=== PATIENT | male | born 1945 | race Caucasian/White ===

== ENCOUNTER 2025-03-20 09:45 | Inpatient (IN) ==
--- NOTE | 2025-03-20 09:48 | Emergency Department Note ---
HPI - Altered Mental Status General Chief Complaint: Altered Mental Status Stated Complaint: Rt Side Weakness Time Seen by Provider: 03/20/25 09:47 Source: caregiver and medical record Mode of arrival: Wheelchair Limitations: altered mental status History of Present Illness MD complaint: altered mental status Onset (ago): hour(s) (14) Time: 20:00 Timing confirmed by: caregiver Severity: moderate Consistency of symptoms: constant Context: seizure disorder Associated symptoms: malaise, weakness and other (Right-sided weakness, gibberish language, not acting himself) Related Data Home Medications Medication Instructions Recorded Confirmed hydroxyzine HCl 25 mg tablet 25 mg PO Q8H PRN itching 06/17/24 06/17/24 loratadine 10 mg tablet 10 mg PO DAILY 06/17/2406/03 multivitamin (Daily Multi-Vitamin 1 tab PO DAILY 06/1706/17/24 tablet) Previous Rx's Medication Instructions Recorded amlodipine 5 mg tablet 5 mg PO DAILY HTN #30 tabs 0 06/20/24 aspirin 81 mg tablet,delayed 81 mg PO DAILY HTN #30 ta bs 06/20/24 release atorvastatin 40 mg tablet 40 mg PO BEDTIME CVA 90 days #90 06/20/24 tabs Allergies Allergy/AdvReac Type Severity Reaction Status Date / Time No Known Drug Allergies Allergy Verified 03/20/25 10:01 Review of Systems Status of ROS 10 or more systems reviewed and unremark able except as noted in history and below (Reviewed with caregiver) Constitutional Reports: malaise Musculoskeletal Reports: muscle weakness Neurological Reports: weakness in extremities, behavioral changes and difficulty communicating thoughts; Denies: slurred speech (Patient babbling) Psychiatric Reports: anxiety [facility] Medical History (Updated 03/20/25 @ 10:05 by Daja Kingston RN) Unspecified glaucoma Metabolic encephalopathy Seizure as late effect of cerebrovascular accident (CVA) Thyroid disease Diabetes Hypertension Seizure disorder CVA (cerebral vascular accident) Social History Smoking status: unknown if ever smoked Problems where you live: no known problems Highest level of school completed/degree received: high school Little interest or pleasure in doing things: not at all Feeling down, depressed, or hopeless: not at all Feel stressed/tense/nervous/anxious/difficulty sleeping: not at all Life stressor details: n/a Exam Constitutional: normal general appearance, distress noted (moderate), average body habitus, limitations noted (altered mental status) and alert Vital Signs - 24 hr 03/20/25 09:45 03/20/25 10:00 03/20/25 10:15 Temperature 98.5 F Pulse Rate 78 67 73 Respiratory Rate 18 18 18 Blood Pressure 181/84 173/81 165/78 Pulse Oximetry 98 98 94 L Oxygen Delivery Nc thod Room Air Room Air Room Air 03/20/25 10:45 03/20/25 11:00 03/20/25 11:15 Temperature Pulse Rate 66 65 68 Respiratory Rate 18 18 18 Blood Pressure 178/93 170/88 172/88 Pulse Oximetry 96 96 94 L Oxygen Delivery Nc thod Room Air Room Air Room Air 03/20/25 12:30 03/20/25 13:00 03/20/25 14:16 Temperature Pulse Rate 68 63 61 Respiratory Rate 18 18 18 Blood Pressure 153/65 162/77 168/87 Pulse Oximetry 96 97 96 Oxygen Delivery Nc thod Room Air Room Air Room Air HENMT: normocephalic, head/scalp atraumatic, hearing grossly normal bilaterally, external ears normal, external nose normal, oropharynx normal, dentition normal and gingiva normal Eyes: PERRL, EOMs intact bilaterally, conjunctivae normal, no scleral icterus, no papilledema, normal visual rachel by confrontation, alignment normal, periorbital findings normal and no nystagmus Neck/C-Spine: visual inspection normal, trachea midline, cervical spine nontender, cervical full ROM noted and supple Lymph: no lymphadenopathy noted and no lymphedema noted Chest: inspection of chest normal Respiratory: breath sounds equal bilaterally, normal respiratory effort, clear to auscultation bilaterally, no wheezes, no rales, no retractions and no use of accessory muscles Cardiovascular: normal heart rate noted, regular rhythm noted, no gallop, no murmur, no JVD, peripheral pulses 2+ throughout and no additional abnormal heart sounds Gastrointestinal: abdomen normal to inspection, abdomen soft to palpation, nontender to palpation, nondistended, normoactive bowel sounds, no masses, no pulsatile mass and no ascites Genitourinary: no CVA tenderness and bladder normal to palpation Back/Pelvis: spine normal to inspection Extremities: normal to inspection, normal to palpation, no tenderness, full ROM, no joint enlargement and no deformity Neurology: no movement abnormality noted, no focal motor deficit noted, no sensory deficits noted, gait abnormality noted (unable to access), speech abnor mality noted (garbled), no pronator drift noted, no fasciculations noted and GCS calculation - Eye opening: Spontaneous Verbal response: Words Motor response: Obey commands Jamieson Coma Scale total score: 13 Psychiatry: Mental Status Exam documented within this Exam's Psych section mental status abnormal (somnolent), cooperative, affect abnormality noted (flat) and psychomotor activity normal Feel stressed/tense/nervous/anxious/difficulty sleeping: not at all Life stressor details: n/a Skin: skin color normal, no rash, no lesions, no ecchymosis noted, no wounds, no lacerations, skin turgor normal, no jaundice, no petechiae, no mottling, nails normal and no alopecia Course Course Hospital Course: 79-year-old male presents to ER from [place] for increased agitation and aggression, altered mental status, possible CVA and has been evaluated by physical exam, CBC, CMP, BMP, troponin serial, urinalysis, lactic acid, EKG, plain film chest x-ray, and CT of the brain without contrast with results as noted in charting. Patient has been calm during her stay in the ER; however, he does have garbled speech and is unable to express his thoughts and is visibly aggravated because he is struggling to express what he wants to say. Patient's lab work shows hyponatremia, mild dehydration, normal troponins, EKG is normal, CT of the brain shows no acute bleeds or intracranial process, CBC is unremarkable. Patient's lactic is elevated at 1.7 with no root cause found for this elevation currently. Patient does have history of CVA and has passed and will be admitted to the [facility] floor for an MRI in the morning as well as carotid ultrasounds. Patient will have neurochecks throughout the night. Consider placement in BHU; however, family refused placement to the BHU at this time. Vital Signs Vital signs: Vital Signs Temperature 98.5 F 03/20/25 09:45 Pulse Rate 78 03/20/25 09:45 Respiratory Rate 18 03/20/25 09:45 Blood Pressure 181/84 03/20/25 09:45 Pulse Oximetry 98 05/18/25 09:45 Oxygen Delivery Method Room Air 03/20/25 09:45 Temperature 98.5 F 03/20/25 09:45 Pulse Rate 61 03/20/25 14:16 Respiratory Rate 18 03/20/25 14:16 Blood Pressure 168/87 03/20/25 14:16 Pulse Oximetry 96 03/20/25 14:16 Oxygen Delivery Method Room Air 03/20/25 14:16 MDM - Altered Mental Status MDM Narrative Medical decision making narrative: Medical decision making for this patient included CBC, CMP, troponin, urinalysis, magnesium, BNP, serial troponin, CT of the brain, plain film chest x-ray, and physical exam. Differential Diagnosis Differential diagnosis: Likely altered mental status, delirium, dementia, hypoglycemia, hyponatremia, subarachnoid hemorrhage and sepsis Medical Records Attestation: I reviewed the patient's medical records. Lab Data Attestation: I reviewed the patient's lab results. Labs: Lab Results 03/20/25 03/20/25 03/20/25 Range/Units 09:50 10:00 10:00 WBC 8.6 (3.7-9.6) K/uL RBC 4.9 (4.40-5.80) M/uL Hgb 14.7 (14.0-17.4) gm/dL Hct 43.9 (41.3-50.1) % MCV 89.6 (81.9-96.5) fl MCH 29.9 (27.6-33.7) pg MCHC 33.4 (33.0-35.7) g/dl RDW 14.7 (11.0-14.8) % Plt Count 186 (142-355) K/uL MPV 8.2 (6.0-10.4) fl Gran % 63.0 (49.1-73.1) % Lymph % (Auto) 21.6 (17.6-39.05) % [place] % (Auto) 12.1 H (4.5-10.7) % Eos % (Auto) 2.8 (0.0-4.0) % Baso % (Auto) 0.5 (0.0-1.3) Lymph # (Auto) 1.9 (0.8-2.9) [place] # (Auto) 1.0 H (0.2-0.8) Eos # (Auto) 0.2 (0.0-0.3) Baso # (Auto) 0.0 (0.0-0.1) Absolute Gran (auto) 5.4 (2.0-6.2) Sodium 135 L (136-145) mmol/L Potassium 4.2 (3.6-5.2) mmol/L Chloride 102.0 (98-107) mmol/L Carbon Dioxide 29 (21-32) mmol/L Anion Gap 4.0 (4-14) mEq/L BUN 17 (7-18) mg/dL Creatinine 1.4 H (0.6-1.3) mg/dL Estimated GFR 50.5 (>59.9) Glucose 155 H (70-110) mg/dL Lactic Acid 1.7 H (0.27-1.43) mmol/L Calcium 8.8 (8.5-10.1) mg/dL Total Bilirubin 0.76 (0.0-1.0) mg/dL AST 15 (15-37) U/L ALT 28 L (30-65) U/L Alkaline Phosphatase 67 (50-136) U/L Troponin I High Sens 9.60 10.10 (4.0-60.4) ng/L B-Natriuretic Peptide 56.8 (0-100) pg/mL Total Protein 7.4 (6.4-8.2) g/dL Albumin 3.4 (3.4-5.0) g/dL Urine Color Yellow (STRAW/YELL.) Urine Appearance Hazy (CLEAR) Ur Specific [place] 1.015 (1.001-1.035) Urine Protein Negative (NEGATIVE) Urine Glucose (UA) Normal (NORMAL) Urine Ketones Negative (NEGATIVE) Urine Occult Blood Negative (NEG - TRACE) Urine Nitrite Negative (NEGATIVE) Urine Bilirubin Negative (NEGATIVE) Urine Urobilinogen Normal (NORMAL) Ur Leukocyte Esterase Negative (NEGATIVE) Fluid pH 6.5 (5 - 9) COVID-19 (SYLVIA) (Not Detectd) 03/20/25 Range/Units 15:45 WBC (3.7-9.6) K/uL RBC (4.40-5.80) M/uL Hgb (14.0-17.4) gm/dL Hct (41.3-50.1) % MCV (81.9-96.5) fl MCH (27.6-33.7) pg MCHC (33.0-35.7) g/dl RDW (11.0-14.8) % Plt Count (142-355) K/uL MPV (6.0-10.4) fl Gran % (49.1-73.1) % Lymph % (Auto) (17.6-39.05) % [place] % (Auto) (4.5-10.7) % Eos % (Auto) (0.0-4.0) % Baso % (Auto) (0.0-1.3) Lymph # (Auto) (0.8-2.9) [place] # (Auto) (0.2-0.8) Eos # (Auto) (0.0-0.3) Baso # (Auto) (0.0-0.1) Absolute Gran (auto) (2.0-6.2) Sodium (136-145) mmol/L Potassium (3.6-5.2) mmol/L Chloride (98-107) mmol/L Carbon Dioxide (21-32) mmol/L Anion Gap (4-14) mEq/L BUN (7-18) mg/dL Creatinine (0.6-1.3) mg/dL Estimated GFR (>59.9) Glucose (70-110) mg/dL Lactic Acid (0.27-1.43) mmol/L Calcium (8.5-10.1) mg/dL Total Bilirubin (0.0-1.0) mg/dL AST (15-37) U/L ALT (30-65) U/L Alkaline Phosphatase (50-136) U/L Troponin I High Sens (4.0-60.4) ng/L B-Natriuretic Peptide (0-100) pg/mL Total Protein (6.4-8.2) g/dL Albumin (3.4-5.0) g/dL Urine Color (STRAW/YELL.) Urine Appearance (CLEAR) Ur Specific [place] (1.001-1.035) Urine Protein (NEGATIVE) Urine Glucose (UA) (NORMAL) Urine Ketones (NEGATIVE) Urine Occult Blood (NEG - TRACE) Urine Nitrite (NEGATIVE) Urine Bilirubin (NEGATIVE) Urine Urobilinogen (NORMAL) Ur Leukocyte Esterase (NEGATIVE) Fluid pH (5 - 9) COVID-19 (SYLVIA) Not detected (Not Detectd) Imaging Data Imaging ordered: Chest x-ray and CT scan - head Attestation: I have reviewed the pertinent imaging results. Radiologist's impression: EXAM: CT HEAD/BRAIN WO CON HISTORY: Altered mental status altered mental status; COMPARISON: Head CT 11/21/2024 TECHNIQUE: Multiple CT axial images of the brain were obtained without IV contrast. Coronal and sagittal images were reconstructed. Dose reduction techniques included Automated Exposure Control (AEC) and adjustment of mA and kV. FINDINGS: Age-related findings include central and cortical atrophy with areas of low density in the periventricular white matter compatible with micro-ischemic changes. This appearance is stable. 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 Lacunar infarct in the right basal ganglia is unchanged. Otherwise bravo and white matter have normal differentiation. There is no mass, shift, or hemorrhage. Cerebellar tonsils are at an appropriate level. No fluid in the sinuses or mucosal thickening to suggest sinusitis. There is no mastoid effusion. IMPRESSION: 1. No acute finding THIS IS AN ELECTRONICALLY VERIFIED FINAL REPORT 03/20/2025 11:07 AM - Electronically signed by Himanshu Harrell MD ECG Data Attestation: I have reviewed the pertinent ECG results. Prior ECG tracings: available for review Interpretation: Sinus rhythm rate 71 Normal P axis RR 844 DC 188 QT 385 P axis 40 QRS 38 T 99 No STEMI Discharge Plan Discharge Patient Disposition: Admitted As Observation Condition: Stable Clinical Impression: Acute alteration in mental status, Hyponatremia, Dehydration, Hyperglycemia Time of Disposition: 11:15
[2025-03-20 10:22] LABS: Basophils%(Percent) Auto 0.5 (0.0-1.3); Eosinophils#(Absolute)Auto 0.2 (0.0-0.3); Eosinophils%(Percent) Auto 2.8 % (0.0-4.0); Granulocytes#(Absolute)- Auto 5.4 (2.0-6.2); Hematocrit 43.9 % (41.3-50.1); Mean Corpuscular Volume 89.6 fl (81.9-96.5); Monocytes %(Percent)- Auto 12.1 % (4.5-10.7); Platelet Count 186 K/uL (142-355); White Blood Count 8.6 K/uL (3.7-9.6)
[2025-03-20 10:24] LABS: Potassium 4.2 mmol/L (3.6-5.2)
[2025-03-20 10:25] LABS: Specific Gravity Urine 1.015 (1.001-1.035); Urine Appearance HAZY (CLEAR); Urine Color YELLOW (STRAW/YELL.)
[2025-03-20 10:26] LABS: PH BODY FLUID EXCP BLOOD 6.5 (5 - 9); Urine Blood NEGATIVE (NEG - TRACE); Urine Urobilinogen Normal (NORMAL)
[2025-03-20] MEDS: 0.9 % SODIUM CHLORIDE 1000 ML 1,000 ML IV STA (11:29)
[2025-03-20] MEDS ORDERED: DOCUSATE SODIUM 100 MG CAPSULE PO PRN (19:16)
[2025-03-20] MEDS ORDERED: ONDANSETRON HCL/PF 4 MG/2 ML VIAL INJ PRN (19:16)
[2025-03-20] MEDS ORDERED: ACETAMINOPHEN 1000 MG/100 ML 1,000 MG/100 ML IV.SOLN IV PRN (19:21)
[2025-03-20] MEDS ORDERED: PROMETHAZINE HCL 25 MG in 0.9 % SODIUM CHLORIDE 50 ML IV PRN (19:21)
[2025-03-21] MEDS: 0.9 % SODIUM CHLORIDE 1000 ML 1,000 ML IV SCH (01:24)
[2025-03-21 05:39] LABS: Basophils%(Percent) Auto 0.4 (0.0-1.3); Eosinophils#(Absolute)Auto 0.4 (0.0-0.3); Eosinophils%(Percent) Auto 4.3 % (0.0-4.0); Granulocytes % - Auto 57.7 % (49.1-73.1); Granulocytes#(Absolute)- Auto 4.7 (2.0-6.2); Hematocrit 41.8 % (41.3-50.1); Monocytes %(Percent)- Auto 11.9 % (4.5-10.7); Platelet Count 172 K/uL (142-355); White Blood Count 8.2 K/uL (3.7-9.6)
[2025-03-21] MEDS: PANTOPRAZOLE SODIUM 40 MG VIAL IVP SCH (09:24)
--- NOTE | 2025-03-21 10:06 | History & Physical Report ---
H&P: HPI History of Present Illness Chief complaint: AMS,HYPONATREMIA,DEHYDRATION,HYPERGLYCEMIA Narrative: Mr. Weinberg was admitted on 03/20/25 from the ED, a patient at [facility] for stroke like symptoms. He was confused and continues to be confused. Garbled speech which still persists this morning and he is having difficulty expressing himself, but does attempt to obey commands although what seems to be physical limitation. CBC, CMP, UA were unremarkable. CT head was negative, while CXR did show pulmonary edema. He has had multiple CVAs in the past. Review of Systems Status of ROS 10 or more systems reviewed and unremark able except as noted in history and below (Reviewed with caregiver) Constitutional Reports: malaise Musculoskeletal Reports: muscle weakness Neurological Reports: weakness in extremities, confusion, behavioral changes and difficulty communicating thoughts; Denies: slurred speech (Patient babbling) Psychiatric Reports: anxiety [facility] Medical History (Updated 03/21/25 @ 10:21 by Zeke Gayle NP) Pulmonary edema Unspecified glaucoma Metabolic encephalopathy Seizure as late effect of cerebrovascular accident (CVA) Thyroid disease Diabetes Hypertension Seizure disorder CVA (cerebral vascular accident) Social History Smoking status: unknown if ever smoked Problems where you live: no known problems Highest level of school completed/degree received: decline to answer Little interest or pleasure in doing things: not at all Feeling down, depressed, or hopeless: not at all Feel stressed/tense/nervous/anxious/difficulty sleeping: not at all Life stressor details: n/a Meds Home Medications and Allergies Home Medications Medication Instructions Recorded Confirmed Type aspirin 81 mg tablet,delayed 81 mg PO DAILY HTN #30 ta bs 06/20/24 03/21/25 Rx release amlodipine 5 mg tablet 10 mg PO DAILY HTN 03/21/25 03/21/25 History atorvastatin 20 mg tablet 20 mg PO .QHS 03/21/2503/21 History clopidogrel 75 mg tablet 75 mg PO DAILY 03/21/2503/03 History dextrose 40 % oral gel (Glucose 10 g PO Q24H PRN hypog lycemia 03/21/25 03/21/25 History Gel) diclofenac sodium 1 % topical gel 2 g topical .every s hift 03/21/25 03/21/25 History glucagon HCl 1 mg solution for 1 mg IM Q24H PRN hypogl ycemia 03/21/25 03/21/25 History injection (Glucagon (HCl) Emergency Kit) levothyroxine 88 mcg tablet 88 mcg PO DAILY 03/21/25 0 03/21/25 History peg 400-propylene glycol 0.4 %-0.3 2 drp ophthalmic (e ye) DAILY PRN 03/21/25 03/21/25 History % eye drops (Systane (propylene dry eye(s) glycol)) vit C 250 mg-vit E 90 mg-zinc 40 1 tab PO BID 03/21/25 03/21/25 History mg-copper 1 [id number] capsule (PreserVision AREDS-2) Allergies Allergy/AdvReac Type Severity Reaction Status Date / Time No Known Drug Allergies Allergy Verified 03/20/25 10:01 Exam Constitutional: normal general appearance, distress noted (moderate), average body habitus, limitations noted (altered mental status) and alert Vital Signs - 24 hr 03/20/25 10:15 03/20/25 10:45 03/20/25 11:00 Temperature Pulse Rate 73 66 65 Pulse Rate [Brachi al] Respiratory Rate 18 18 18 Blood Pressure 165/78 178/93 170/88 Blood Pressure [Ri ght Arm] Pulse Oximetry 94 L 96 [facility] Room [facility] 03/20/25 11:15 03/20/25 12:30 03/20/25 13:00 Temperature Pulse Rate 68 68 63 Pulse Rate [Brachi al] Respiratory Rate 18 18 18 Blood Pressure 172/88 153/65 162/77 Blood Pressure [Ri ght Arm] Pulse Oximetry 94 L 96 97 [facility] Room Air Room Air 03/20/25 14:16 03/20/25 19:00 03/20/25 20:30 Temperature Pulse Rate 61 65 Pulse Rate [Brachi al] Respiratory Rate 18 18 Blood Pressure 168/87 161/79 Blood Pressure [Ri ght Arm] Pulse Oximetry 96 97 [facility] Room Air Room Air 03/20/25 22:00 03/20/25 22:50 03/20/25 23:35 Temperature 98.5 F 98.5 F 98.5 F Pulse Rate 63 63 Pulse Rate [Brachi al] 64 Respiratory Rate 18 18 17 Blood Pressure 159/71 159/71 Blood Pressure [Ri ght Arm] 153/76 Pulse Oximetry 97 97 99 Oxygen Delivery Me thod Room Air Room Air 03/21/25 03:59 03/21/25 07:44 Temperature 98.5 F 98.0 F Pulse Rate Pulse Rate [Brachi al] 62 64 Respiratory Rate 18 19 Blood Pressure Blood Pressure [Ri ght Arm] 149/78 160/75 Pulse Oximetry 97 96 Oxygen Delivery Me thod Room Air Room Air HENMT: normocephalic, head/scalp atraumatic, hearing grossly normal bilaterally, external ears normal, external nose normal, oropharynx normal, dentition normal and gingiva normal Eyes: PERRL, EOMs intact bilaterally, conjunctivae normal, no scleral icterus, no papilledema, normal visual rachel by confrontation, alignment normal, periorbital findings normal and no nystagmus Neck/C-Spine: visual inspection normal, trachea midline, cervical spine nontender, cervical full ROM noted and supple Lymph: no lymphadenopathy noted and no lymphedema noted Chest: inspection of chest normal Respiratory: breath sounds equal bilaterally, normal respiratory effort, clear to auscultation bilaterally, no wheezes, no rales, no retractions and no use of accessory muscles Cardiovascular: normal heart rate noted, regular rhythm noted, no gallop, no murmur, no JVD, peripheral pulses 2+ throughout and no additional abnormal heart sounds Gastrointestinal: abdomen normal to inspection, abdomen soft to palpation, nontender to palpation, nondistended, normoactive bowel sounds, no masses, no pulsatile mass and no ascites Genitourinary: no CVA tenderness and bladder normal to palpation Back/Pelvis: spine normal to inspection Extremities: normal to inspection, normal to palpation, no tenderness, full ROM, no joint enlargement and no deformity Neurology: no movement abnormality noted (generalized weakeness), no focal motor deficit noted, no sensory deficits noted, gait abnormality noted (unable to access), speech abnormality noted (garbled), coordination normal (difficulty with nose to finger, heel to diop), no pronator drift noted, no fasciculations noted and GCS calculation - Eye opening: Spontaneous Verbal response: Words Motor response: Obey commands Smiley Coma Scale total score: 13 Psychiatry: Mental Status Exam documented within this Exam's Psych section mental status abnormal (somnolent), cooperative, affect abnormality noted (flat) and psychomotor activity normal Feel stressed/tense/nervous/anxious/difficulty sleeping: not at all Life stressor details: n/a Skin: skin color normal, no rash, no lesions, no ecchymosis noted, no wounds, no lacerations, skin turgor normal, no jaundice, no petechiae, no mottling, nails normal and no alopecia Assessment and Plan Assessment and Plan (1) Acute CVA (cerebrovascular accident): Assessment and Plan: MRI/MRI Carotid US Plavix 75mg po daily ASA 81mg po daily Lipitor 40mg po daily Code(s): I63.9 - Cerebral infarction, unspecified (2) Weakness of right side of body: Assessment and Plan: MRI/MRI Carotid US Plavix 75mg po daily ASA 81mg po daily Lipitor 40mg po daily Code(s): R53.1 - Weakness (3) Pulmonary edema: Assessment and Plan: Lasix 40mg IV daily Code(s): J81.1 - Chronic pulmonary edema (4) Hypothyroidism: Assessment and Plan: Synthroid 88mcg po daily Qualifiers: Hypothyroidism type: other Qualified Code(s): E03.8 - Other specified hypothyroidism Code(s): E03.9 - Hypothyroidism, unspecified (5) Diabetes: Assessment and Plan: Accucheck ACHS w/ SSI Qualifiers: Diabetes mellitus complication detail: with other circulatory complications Diabetes mellitus complication status: with circulatory complication Diabetes mellitus roasterman insulin use: without roasterman use Diabetes mellitus type: type 2 Qualified Code(s): E11.59 - Type 2 diabetes phillip itus with other circulatory complications Code(s): E11.9 - Type 2 diabetes mellitus without complications (6) Hypertension: Assessment and Plan: Norvac 10mgpo daily Qualifiers: Hypertension type: primary hypertension Qualified Code(s): I10 - Essential (primary) hypertension Code(s): I10 - Essential (primary) hypertension Plan Admit VS q4hrs PT/OT/ST eval MRI/MRA Results Labs Labs: CBC 03/20/25 03/21/25 Range/Units 10:00 05:30 WBC 8.6 8.2 (3.7-9.6) K/uL RBC 4.9 4.7 (4.40-5.80) M/uL Hgb 14.7 14.2 (14.0-17.4) gm/dL Hct 43.9 41.8 (41.3-50.1) % Plt Count 186 172 (142-355) K/uL Gran % 63.0 57.7 (49.1-73.1) % Lymph % (Auto) 21.6 25.7 (17.6-39.05) % [place] % (Auto) 12.1 H 11.9 H (4.5-10.7) % Eos % (Auto) 2.8 4.3 H (0.0-4.0) % Baso % (Auto) 0.5 0.4 (0.0-1.3) Lymph # (Auto) 1.9 2.1 (0.8-2.9) [place] # (Auto) 1.0 H 1.0 H (0.2-0.8) Eos # (Auto) 0.2 0.4 H (0.0-0.3) Baso # (Auto) 0.0 0.0 (0.0-0.1) Absolute Gran (auto) 5.4 4.7 (2.0-6.2) CMP 03/20/25 03/21/25 10:00 05:30 Sodium 135 L 142 Potassium 4.2 4.0 Chloride 102.0 102.0 Carbon Dioxide 29 27 BUN 17 13 Creatinine 1.4 H 1.2 Glucose 155 H 125 H Calcium 8.8 7.7 L Liver Function 03/20/25 Range/Units 10:00 Total Bilirubin 0.76 (0.0-1.0) mg/dL AST 15 (15-37) U/L ALT 28 L (30-65) U/L Alkaline Phosphatase 67 (50-136) U/L Albumin 3.4 (3.4-5.0) g/dL Urine 03/20/25 09:50 Urine Color Yellow Urine Appearance Hazy Ur Specific [place] 1.015 Urine Protein Negative Urine Glucose (UA) Normal Imaging Imaging ordered: Chest x-ray ([facility] [address] [place] [address] XRay Report Signed Patient: Joseph Weinberg MR#: [id number] : 1945 Acct:[id number] Age/Sex: 79 / M ADM Date: 03/20/25 Loc: ED Attending Dr: Ordering Physician: Bao Neville NP Date of Service: 03/20/25 Procedure(s): XR ethel), CT scan - head ( [place] [address] CT Scan Report Signed Patient: Joseph Weinberg MR#: [id number] : 1945 Acct:[id number] Age/Sex: 79 / M ADM Date: 03/20/25 Loc: ED Attending Dr: Ordering Physician: Bao Neville NP Date of Service: 03/20/25 Procedure(s): CT) and MRI - head (Patient: Joseph Weinberg MR#: [id number] : 1945 Acct:[id number] Age/Sex: 79 / M ADM Date: 03/20/25 Loc: [place] 1106-[address]: Zeke Gayle NP Ordering Physician: Bao Neville NP Date of Service: 03/21/25 Procedure(s): MR head/brain wo/w con Accession Number(s): [id number] cc: ~ EXA)
[2025-03-21] MEDS: AMLODIPINE BESYLATE 5 MG TABLET PO SCH (13:17)
[2025-03-21] MEDS: FUROSEMIDE 20 MG/2 ML VIAL IV SCH (13:17)
[2025-03-21] MEDS: ATORVASTATIN CALCIUM 10 MG TABLET PO SCH (13:17)
[2025-03-21] MEDS: CLOPIDOGREL BISULFATE 75 MG TABLET PO SCH (13:18)
[2025-03-21] MEDS: ASPIRIN 81 MG TABLET.DR PO SCH (13:18)
[2025-03-21] MEDS ORDERED: LORazepam 2 MG/ML VIAL IVP PRN (14:18)
[2025-03-21] MEDS: LEVOTHYROXINE SODIUM 88 MCG TABLET PO SCH (15:06)
[2025-03-21] MEDS: LORazepam 1 MG TABLET PO ONE (15:07)
[2025-03-21] MEDS: OLANZapine 10 MG VIAL IM ONE (18:25)
[2025-03-21] MEDS: MORPHINE SULFATE 2 MG/ML CARTRIDGE IV PRN (20:49)
[2025-03-22 07:09] LABS: Basophils%(Percent) Auto 0.4 (0.0-1.3); Eosinophils#(Absolute)Auto 0.1 (0.0-0.3); Eosinophils%(Percent) Auto 0.9 % (0.0-4.0); Granulocytes % - Auto 79.3 % (49.1-73.1); Granulocytes#(Absolute)- Auto 8.7 (2.0-6.2); Hematocrit 48.9 % (41.3-50.1); Mean Corpuscular Volume 88.9 fl (81.9-96.5); Monocytes #(Absolute)- Auto 0.9 (0.2-0.8); Monocytes %(Percent)- Auto 8.4 % (4.5-10.7); Platelet Count 194 K/uL (142-355)
--- NOTE | 2025-03-22 10:05 | Discharge Summary ---
DS: Providers Provider Date of admission: 03/20/25 19:17 Primary care physician: Sheila Quinones DO Consults: 03/21/25 10:25 Consult to Occupational Therapy Routine Comment: Consulting Provider: Reason for consultation: cva Physician Instructions: eval and tx Consult to Physical Therapy Routine Comment: Consulting Provider: Reason for consultation: cva Physician Instructions: eval and tx Consult to Speech Therapy Routine Comment: Consulting Provider: Reason for consultation: cva Physician Instructions: eval and tx Anticipated date of discharge: 03/24/25 DS: Diagnosis Discharge Diagnosis (1) Acute CVA (cerebrovascular accident): (2) Weakness of right side of body: (3) Pulmonary edema: (4) Hypothyroidism: Qualifiers: Hypothyroidism type: other Qualified Code(s): E03.8 - Other specified hypothyroidism (5) Diabetes: Qualifiers: Diabetes mellitus complication detail: with other circulatory complications Diabetes mellitus complication status: with circulatory complication Diabetes mellitus halfway insulin use: without halfway use Diabetes mellitus type: type 2 Qualified Code(s): E11.59 - Type 2 diabetes mellitus with other circulatory complications (6) Hypertension: Qualifiers: Hypertension type: primary hypertension Qualified Code(s): I10 - Esse ntial (primary) hypertension DS: Summary Hospital Course Hospital Course: Mr. Weinberg was admitted on 03/20/25 from the ED, a patient at [place] for stroke like symptoms. He was confused and continues to be confused. Garbled speech which still persists this morning and he is having difficulty expressing himself, but does attempt to obey commands although what seems to be physical limitation. CBC, CMP, UA were unremarkable. CT head was negative, while CXR did show pulmonary edema. He has had multiple CVAs in the past. MRI was conducted on 03/21/25 with CVA present; results were discussed with REBEKAH Mcarthur and decision was made not to transfer as patient was stable and intervention window had passed. During the night patient became combative and was given zyprexa which he later did have a hypotensive episode. BP and sedatory medications were later stopped. On 03/22/25 carotid doppler results were obtained showing R sided occultion and 70% stenosis. Discussed with family findings; continuing treatment here at [facility] or transfer for vascular evaluation with possible intervention and they are agreeable. Patient was accepted at [facility] by Dr. Wayne 03/21/25. Patient was started on aspirin and plavix. He continued to have R sided weakness throughout his stay, BP did stabilize. During the night of 03/23-03/24 he got combative, was given haldol, and later became hypotensive. Was seen by ED provider CXR and CT head were conducted. CXR showed LLL PNA and patient started on Zosyn. CT head showed L parietal subacute infarct. Contacted [facility] patient accepted by Dr. Monsivais on 03/24/25 1030am. Patient transferred via EMS on 03/24/25 Status at Discharge Cognitive/behavioral status at discharge: aphasia, Functional status at discharge: uses cane/walker (max assist) Overall status at discharge: patient is not back to baseline Time Spent with Patient Time attestation: Total time spent providing and/or coordinating discharge services: 60 Specific discharge activities: Transfer to Dr. Wayne [facility] [place] Exam Exam: Exam limited by aphasia Constitutional: normal general appearance, distress noted (moderate), average body habitus, limitations noted (altered mental status) and alert Vital Signs - 24 hr 03/21/25 12:33 03/21/25 13:17 03/21/25 13:17 Temperature 98.2 F Pulse Rate [Brachi al] 70 Respiratory Rate 19 Blood Pressure 149/66 149/66 Blood Pressure [Ri ght Arm] 149/66 Pulse Oximetry 96 Oxygen Delivery Me thod Room Air 03/21/25 14:03 03/21/25 16:11 03/21/25 19:15 Temperature 97.7 F 97.9 F Pulse Rate [Brachi al] 66 73 Respiratory Rate 19 17 Blood Pressure 143/73 Blood Pressure [Ri ght Arm] 138/57 133/61 Pulse Oximetry 95 96 Oxygen Delivery Me thod Room Air Room Air 03/21/25 23:26 03/22/25 03:33 03/22/25 04:29 Temperature 97.6 F 97.8 F Pulse Rate [Brachi al] 62 53 L Respiratory Rate 16 17 Blood Pressure Blood Pressure [Ri ght Arm] 95/59 71/37 95/49 Pulse Oximetry 96 96 Oxygen Delivery Me thod Room Air Room Air 03/22/25 07:57 Temperature 97.6 F Pulse Rate [Brachi al] 65 Respiratory Rate 19 Blood Pressure Blood Pressure [Ri ght Arm] 123/68 Pulse Oximetry 96 Oxygen Delivery Me thod Room Air HENMT: normocephalic, head/scalp atraumatic, hearing grossly normal bilaterally, external ears normal, external nose normal, oropharynx normal, dentition normal and gingiva normal Eyes: PERRL, EOMs intact bilaterally, conjunctivae normal, no scleral icterus, no papilledema, normal visual rachel by confrontation (limited R vision), alignment normal, periorbital findings normal and no nystagmus (limited R vision) Neck/C-Spine: visual inspection normal, trachea midline, cervical spine nontender, cervical full ROM noted and supple Lymph: no lymphadenopathy noted and no lymphedema noted Chest: inspection of chest normal Respiratory: breath sounds equal bilaterally, normal respiratory effort, clear to auscultation bilaterally, no wheezes, no rales, no retractions and no use of accessory muscles Cardiovascular: normal heart rate noted, regular rhythm noted, no gallop, no murmur, no JVD, peripheral pulses 2+ throughout and no additional abnormal heart sounds Gastrointestinal: abdomen normal to inspection, abdomen soft to palpation, nontender to palpation, nondistended, normoactive bowel sounds, no masses, no pulsatile mass and no ascites Genitourinary: no CVA tenderness and bladder normal to palpation Back/Pelvis: spine normal to inspection Extremities: normal to inspection, normal to palpation, no tenderness, full ROM, no joint enlargement and no deformity Neurology: no movement abnormality noted (R impaired secondary to aphasia), no focal motor deficit noted, no sensory deficits noted, gait abnormality noted (unable to access), speech abnormality noted (garbled), no pronator drift noted, no fasciculations noted and GCS calculation - Eye opening: Spontaneous Verbal response: Words Motor response: Obey commands Irvin Coma Scale total score: 13 Patient having some difficulty following commands; physical vs mental impairments. Psychiatry: Mental Status Exam documented within this Exam's Psych section mental status abnormal (aphasia) (somnolent), affect abnormality noted (flat) a nd psychomotor activity normal difficulty obeing commands Life stressor details: n/a Skin: skin color normal, no rash, no lesions, no ecchymosis noted, no wounds, no lacerations, skin turgor normal, no jaundice, no petechiae, no mottling, nails normal and no alopecia DS: Data Data Completed and Pending Labs on day of discharge: Labs from last 24 hours 03/22/25 03/21/25 06:54 05:30 WBC 11.0 H RBC 5.5 Hgb 16.4 Hct 48.9 MCV 88.9 MCH 29.9 MCHC 33.6 RDW 14.4 Plt Count 194 MPV 8.5 Gran % 79.3 H Lymph % (Auto) 11.0 L [place] % (Auto) 8.4 Eos % (Auto) 0.9 Baso % (Auto) 0.4 Lymph # (Auto) 1.2 [place] # (Auto) 0.9 H Eos # (Auto) 0.1 Baso # (Auto) 0.0 Absolute Gran (auto) 8.7 H Sodium 136 Potassium 4.0 Chloride 99.0 Carbon Dioxide 30 Anion Gap 7.0 BUN 20 H Creatinine 1.6 H Estimated GFR 43.0 Glucose 133 H Calcium 9.1 B-Natriuretic Peptide 87.2 Triglycerides 211 H Cholesterol 181 LDL Cholesterol 117.0 H VLDL Cholesterol, Calc 42 H HDL Cholesterol 41 LDL/HDL Ratio 2.9 Cholesterol/HDL Ratio 4 Discharge Plan Discharge Disposition: Xfer Short-Term Hosp Condition: Stable Discharge Medications: No Action aspirin 81 mg Tablet,Delayed Release (Dr/Ec) 81 mg PO DAILY Qty: 30 2RF atorvastatin 20 mg tablet 20 mg PO .QHS clopidogrel 75 mg tablet 75 mg PO DAILY glucagon HCl [Glucagon (HCl) Emergency Kit] 1 mg recon soln 1 mg IM Q24H PRN (Reason: hypoglycemia) Rx Instructions: until target blood sugar attained dextrose [Glucose Gel] 40 % gel 10 g PO Q24H PRN (Reason: hypoglycemia) Rx Instructions: until symptoms of low blood sugar are controlled levothyroxine 88 mcg tablet 88 mcg PO DAILY diclofenac sodium 1 % gel 2 g TOPICAL .every shift Systane (propylene glycol) 0.4-0.3 % drops 2 drp ophthalmic (eye) DAILY PRN (Reason: dry eye(s)) PreserVision AREDS-2 250-90-40-1 mg capsule 1 tab PO BID amlodipine 5 mg Tablet 10 mg PO DAILY Activity: as per physical therapy Diet: other Diet Detail: [facility] Hospital Course: Mr. Weinberg was admitted on 03/20/25 from the ED, a patient at [place] for stroke like symptoms. He was confused and continues to be confused. Garbled speech which still persists this morning and he is having difficulty expressing himself, but does attempt to obey commands although what seems to be physical limitation. CBC, CMP, UA were unremarkable. CT head was negative, while CXR did show pulmonary edema. He has had multiple CVAs in the past. MRI was conducted on 03/21/25 with CVA present; results were discussed with REBEKAH Mcarthur and decision was made not to transfer as patient was stable and intervention window had passed. During the night patient became combative and was given zyprexa which he later did have a hypotensive episode. BP and sedatory medications were later stopped. On 03/22/25 carotid doppler results were obtained showing R sided occultion and 70% stenosis. Discussed with family findings; continuing treatment here at [place] or transfer for vascular evaluation with possible intervention and they are agreeable. Patient was a ccepted at [facility] by Dr. Wayne 03/21/25. Patient was started on aspirin and plavix. He continued to have R sided weakness throughout his stay, BP did stabilize. During the night of 03/23-03/24 he got combative, was given haldol, and later became hypotensive. Was seen by ED provider CXR and CT head were conducted. CXR showed LLL PNA and patient started on Zosyn. CT head showed L parietal s ubacute infarct. Contacted [facility] patient accepted by Dr. Monsivais on 03/24/25 1030am. Patient transferred via EMS on 03/24/25 Interventions: Discharge Assessment Last Done: 03/24/25 12:49 MED/SURG & ICU Observation Charge Sheet Last Done: 03/24/25 12:52 Print Language: Italian Patient Instructions: Ischemic Stroke (DC) Activity Restrictions/Additional Instructions: PT TRANSFERRING TO HIGH LEVEL OF CARE FOR FURTHER TREATMENT Follow-Ups: Sheila Quinones DO [Primary Care Provider, Medical] Discharge Date/Time: 03/24/25 12:52
--- NOTE | 2025-03-22 15:01 | Progress Note ---
Progress Note: Subjective Subjective Interval history: Mr. Weinberg is lethargic this morning. Once again difficulty with this R arm, R side neglect, and aphasia. He did get hypotensive during the night after receiving zyprexa due to getting combative with staff. 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 Discussed findings with nephew and he is agreeable for transfer for neurovascular evaluation. Contacted [facility] for Transfer for neurovascular evaluation, Dr. Wayne accepted patient 1005. Exam Constitutional: normal general appearance, distress noted (moderate), average body habitus, limitations noted (altered mental status) and alert Vital Signs - 24 hr 03/21/25 16:11 03/21/25 19:15 03/21/25 23:26 Temperature 97.7 F 97.9 F 97.6 F Pulse Rate [Brachi al] 66 73 62 Respiratory Rate 19 17 16 Blood Pressure [Ri ght Arm] 138/57 133/61 95/59 Pulse Oximetry 95 96 96 Oxygen Delivery Me thod Room Air Room Air Room Air 03/22/25 03:33 03/22/25 04:29 03/22/25 07:57 Temperature 97.8 F 97.6 F Pulse Rate [Brachi al] 53 L 65 Respiratory Rate 17 19 Blood Pressure [Ri ght Arm] 71/37 95/49 123/68 Pulse Oximetry 96 96 Oxygen Delivery Me thod Room Air Room Air 03/22/25 11:43 Temperature 97.7 F Pulse Rate [Brachi al] 66 Respiratory Rate 19 Blood Pressure [Ri ght Arm] 134/65 Pulse Oximetry 95 Oxygen Delivery Me thod Room Air HENMT: normocephalic, head/scalp atraumatic, hearing grossly normal bilaterally, external ears normal, external nose normal, oropharynx normal, dentition normal and gingiva normal Eyes: PERRL, EOMs intact bilaterally, conjunctivae normal, no scleral icterus, no papilledema, normal visual rachel by confrontation, alignment normal, periorbital findings normal and no nystagmus Neck/C-Spine: visual inspection normal, trachea midline, cervical spine nontender, cervical full ROM noted and supple Lymph: no lymphadenopathy noted and no lymphedema noted Chest: inspection of chest normal Respiratory: breath sounds equal bilaterally, normal respiratory effort, clear to auscultation bilaterally, no wheezes, no rales, no retractions and no use of accessory muscles Cardiovascular: normal heart rate noted, regular rhythm noted, no gallop, no murmur, no JVD, peripheral pulses 2+ throughout and no additional abnormal heart sounds Gastrointestinal: abdomen normal to inspection, abdomen soft to palpation, nontender to palpation, nondistended, normoactive bowel sounds, no masses, no pulsatile mass and no ascites Genitourinary: no CVA tenderness and bladder normal to palpation Back/Pelvis: spine normal to inspection Extremities: normal to inspection, normal to palpation, no tenderness, full ROM, no joint enlargement and no deformity Neurology: 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 II-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 intact (impaired, patient has difficulty with commands to complete assessment), no movement abnormality noted (R neglect), no focal motor deficit noted, no sensory deficits noted (R side neglect), gait abnormality noted (unable to access), speech abnormality noted (expressive aphasia), (receptive aphasia) and (garbled), coordination normal, no fasciculations noted and GCS calculation - Eye opening: Spontaneous Verbal response: Words Motor response: Obey commands Corbett Coma Scale total score: 13 difficulty with comands and fails nose to finger Psychiatry: Mental Status Exam documented within this Exam's Psych section mental status abnormal (somnolent), cooperative, affect abnormality noted (flat) and psychomotor activity normal Feel stressed/tense/nervous/anxious/difficulty sleeping: not at all Life stressor details: n/a Skin: skin color normal, no rash, no lesions, no ecchymosis noted, no wounds, no lacerations, skin turgor normal, no jaundice, no petechiae, no mottling, nails normal and no alopecia Progress Note: Objective Labs Labs: CBC 03/22/25 Range/Units 06:54 WBC 11.0 H (3.7-9.6) K/uL RBC 5.5 (4.40-5.80) M/uL Hgb 16.4 (14.0-17.4) gm/dL Hct 48.9 (41.3-50.1) % Plt Count 194 (142-355) K/uL Gran % 79.3 H (49.1-73.1) % Lymph % (Auto) 11.0 L (17.6-39.05) % [place] % (Auto) 8.4 (4.5-10.7) % Eos % (Auto) 0.9 (0.0-4.0) % Baso % (Auto) 0.4 (0.0-1.3) Lymph # (Auto) 1.2 (0.8-2.9) [place] # (Auto) 0.9 H (0.2-0.8) Eos # (Auto) 0.1 (0.0-0.3) Baso # (Auto) 0.0 (0.0-0.1) Absolute Gran (auto) 8.7 H (2.0-6.2) CMP 03/22/25 06:54 Sodium 136 Potassium 4.0 Chloride 99.0 Carbon Dioxide 30 BUN 20 H Creatinine 1.6 H Glucose 133 H Calcium 9.1 Urine 03/20/25 09:50 Urine Color Yellow Urine Appearance Hazy Ur Specific [place] 1.015 Urine Protein Negative Urine Glucose (UA) Normal Imaging CT scan - head: Radiologist's impression: Patient: Joseph Weinberg MR#: [id number] : 1945 Acct:[id number] Age/Sex: 79 / M ADM Date: 03/20/25 Loc: ED Attending Dr: Ordering Physician: Bao Neville NP Date of Service: 03/20/25 Procedure(s): CT head/brain wo con Accession Number(s): [id number] cc: Bao Neville NP; Sheila Quinones,~ EXAM: CT HEAD/BRAIN WO CON HISTORY: Altered mental status altered mental status; COMPARISON: Head CT 11/21/2024 TECHNIQUE: Multiple CT axial images of the brain were obtained without IV contrast. Coronal and sagittal images were reconstructed. Dose reduction techniques included Automated Exposure Control (AEC) and adjustment of mA and kV. FINDINGS: Age-related findings include central and cortical atrophy with areas of low density in the periventricular white matter compatible with micro-ischemic changes. This appearance is stable. 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 Lacunar infarct in the right basal ganglia is unchanged. Otherwise shah and white matter have normal differentiation. There is no mass, shift, or hemorrhage. Cerebellar tonsils are at an appropriate level. No fluid in the sinuses or mucosal thickening to suggest sinusitis. There is no mastoid effusion. IMPRESSION: 1. No acute finding THIS IS AN ELECTRONICALLY VERIFIED FINAL REPORT 03/20/2025 11:07 AM - Electronically signed by Himanshu Harrell MD Dictated By: Himanshu Harrell M.D. Signed By: MRI - head: Radiologist's impression: Patient: Joseph Weinberg MR#: [id number] : 1945 Acct:[id number] Age/Sex: 79 / M ADM Date: 03/20/25 Loc: [place] 1106-[address]: Zeke Gayle NP Ordering Physician: Bao Neville NP Date of Service: 03/21/25 Procedure(s): MR head/brain wo/w con Accession Number(s): [id number] cc: ~ EXAMINATION: MR HEAD/BRAIN WO/W CON HISTORY: AMS, dysphasia; trouble speaking; GFR:60.8 11 ml prohance. COMPARISON STUDY: CT brain 03/20/2025. MRI brain 04/21/2024 TECHNIQUE: Sagittal T1, axial T1, axial T2, axial proton density, axial diffusion weighted images and coronal FLAIR images were obtained through the brain. Pre and postcontrast MRI of the brain was performed. FINDINGS: Study is degraded by excessive motion artifact. There are foci of restricted diffusion in the left parietal region. Small focus of restricted diffusion in the left caudate nucleus, left centrum semiovale and left parietal high convexity. There are couple of small foci of restricted diffusion in the right centrum semiovale. This may represent embolic phenomenon. Old lacunar infarct in the left thalamus, right basal ganglia and right cerebellum.. Ventricles and sulci demonstrate atrophy and deep white matter ischemic changes.. Shah-white matter differentiation is maintained throughout. There are no intra-axial or extra-axial collections noted. There are normal flow voids within the middle cerebral arteries as well as the basilar artery. There is no hemorrhage midline shift or obstructive hydrocephalus noted. No abnormal enhancement or ring enhancing lesions noted. Excessive motion artifact limits evaluation.. Globes and retro-orbital structures are unremarkable. The sinuses are grossly clear. Cerebellopontine angles are normal. On the sagittal images cervicomedullary junction is normal. Normal bone marrow signal is seen within the clivus and cervical spine. Pituitary is unremarkable. Normal midline structures are present. There is no abnormal signal on the FLAIR and gradient echo images.. IMPRESSION: There are foci of restricted diffusion in the left caudate nucleus, left parietal region, left centrum semiovale, left parietal high convexity. In addition there are some foci of restricted diffusion in the right centrum semiovale. This may represent embolic process. No hemorrhage or midline shift. Atrophy and deep white matter ischemic changes. Old infarcts in the left thalamus, right basal ganglia and right cerebellum. THIS IS AN ELECTRONICALLY VERIFIED FINAL REPORT 03/21/2025 12:41 PM - Electronically signed by Neeraj Sewell MD Dictated By: Neeraj Sewell Signed By: 03/21/25 1241 DD/ 0700 TD/TT: 03/21/25 1231 Chest x-ray: Radiologist's impression: Patient: Joseph Weinberg MR#: [id number] : 1945 Acct:[id number] Age/Sex: 79 / M ADM Date: 03/20/25 Loc: ED Attending Dr: Ordering Physician: Bao Neville NP Date of Service: 03/20/25 Procedure(s): XR chest 1V Accession Number(s): [id number] cc: Bao Neville NP~ EXAM: CHEST HISTORY: UNABLE TO READ FIRST X-RAYUNABLE TO READ FIRST X-RAY; COMPARISON: March 20, 2025. TECHNIQUE: Frontal view of the chest was submitted for interpretation. FINDINGS: The cardiomediastinal silhouette is again seen to be enlarged. Lungs show pulmonary edema. IMPRESSION: Cardiomegaly with pulmonary edema. THIS IS AN ELECTRONICALLY VERIFIED FINAL REPORT 03/20/2025 7:27 PM - Electronically signed by Rashmi Alanis MD Dictated By: Rashmi Alanis M.D. Signed By: 03/20/25 192 Patient: Joseph Weinberg MR#: [id number] : 1945 Acct:[id number] Age/Sex: 79 / M ADM Date: 03/20/25 Loc: ED Attending Dr: Ordering Physician: Bao Neville NP Date of Service: 03/20/25 Procedure(s): XR chest 1V Accession Number(s): [id number] cc: Bao Neville NP~ EXAM: CHEST HISTORY: dyspneadyspnea; COMPARISON: June 16, 2024. TECHNIQUE: Frontal view of the chest was submitted for interpretation. FINDINGS: The cardiomediastinal silhouette is again seen to be enlarged. Lungs show low volumes. IMPRESSION: Stable cardiomegaly. Low lung volumes. THIS IS AN ELECTRONICALLY VERIFIED FINAL REPORT 03/20/2025 7:27 PM - Electronically signed by Rashmi Alanis MD Dictated By: Rashmi Alanis M.D. Signed By: 03/20/251926 Ultrasound: Radiologist's impression: [place] [address] Ultrasound Report Signed Patient: Joseph Weinberg MR#: [id number] : 1945 Acct:[id number] Age/Sex: 79 / M ADM Date: 03/20/25 Loc: [place] 1106-[address]: Zeke Gayle NP Ordering Physician: Bao Neville NP Date of Service: 03/21/25 Procedure(s): US carotid doppler BI Accession Number(s): [id number] cc: Bao Neville NP~ EXAM: US CAROTID DOPPLER BI HISTORY: assessing for occlusion to brainassessing for occlusion to brain; COMPARISON: Neck CT angiogram April 21, 2024 TECHNIQUE: Multiple shah scale and color flow Doppler images of the right and left carotid arterial system were obtained. The vertebral arterial system was evaluated as well. FINDINGS: Maximum right proximal internal carotid artery velocity 145 cm/second with ratio to common carotid 59 cm/second is 2.27. Left maximum proximal internal carotid velocity 66 cm/second with ratio to common carotid 91 cm/second is 0.63. The right vertebral artery is occluded, unchanged. Left vertebral artery is antegrade flow. IMPRESSION: 70% right proximal internal carotid artery stenosis. Less than 50% left proximal internal carotid artery stenosis. Occluded right vertebral artery. THIS IS AN ELECTRONICALLY VERIFIED FINAL REPORT 03/21/2025 3:53 PM - Electronically signed by Bryon Padilla MD Dictated By: Bryon Padilla M.D. Signed By: Progress Note: A&P Assessment and Plan (1) Acute CVA (cerebrovascular accident): Assessment and Plan: MRI/MRI Carotid US Plavix 75mg po daily ASA 81mg po daily Lipitor 40mg po daily (2) Weakness of right side of body: Assessment and Plan: MRI/MRI Carotid US Plavix 75mg po daily ASA 81mg po daily Lipitor 40mg po daily (3) Pulmonary edema: Assessment and Plan: D/C Lasix 40mg IV daily (4) Hypothyroidism: Assessment and Plan: Synthroid 88mcg po daily Qualifiers: Hypothyroidism type: other Qualified Code(s): E03.8 - Other specified hypothyroidism (5) Diabetes: Assessment and Plan: Accucheck ACHS w/ SSI Qualifiers: Diabetes mellitus type: type 2 Diabetes mellitus group home insulin use: without termite technician use Diabetes mellitus complication status: with circulatory complication Diabetes mellitus complication detail: with other circulatory complications Qualified Code(s): E11.59 - Type 2 diabetes mellitus with other circulatory complications (6) Hypertension: Assessment and Plan: D/C Norvac 10mgpo daily Qualifiers: Hypertension type: primary hypertension Qualified Code(s): I10 - Essential (primary) hypertension Plan Admit VS q4hrs PT/OT/ST eval Transfer for neurovascular evaluation Hold antihypertensives Fall Risk Details Boo Fall Scale Risk Level: High Fall Risk Current Medications: Current Medications Aspirin (Aspirin 81 Mg Tablet.) 81 mg PO DAILY [facility] Last Admin: 03/22/25 09:11 Dose: 81 mg Atorvastatin Calcium (Atorvastatin Calcium 10 Mg Tablet) 40 mg PO BEDTIME [facility] Clopidogrel Bisulfate (Clopidogrel Bisulfate 75 Mg Tablet) 75 mg PO DAILY [facility] Last Admin: 03/22/25 09:11 Dose: 75 mg Docusate Sodium (Docusate Sodium 100 Mg Capsule) 100 mg PO DAILY PRN PRN Reason: Constipation Promethazine HCl 25 mg/ Sodium (Chloride) 51 mls @ 200 mls/hr IV Q8H PRN PRN Reason: Nausea And Vomiting Acetaminophen (Acetaminophen 1000 Mg/100 Ml) 1,000 mg in 100 mls @ 400 mls/hr IV Q6H PRN PRN Reason: Pain Insulin Human Regular (Insulin Regular, Human 100 Unit/Ml) 0 unit SUBQ ACHS PRN; Protocol PRN Reason: Blood Sugar - High Insulin Human Regular (Insulin Regular, Human 100 Unit/Ml) 0 unit SUBQ ACHS PRN; Protocol PRN Reason: diabetes Ketorolac Tromethamine (Ketorolac 30 Mg/Ml Inj Vial) 15 mg IVP Q6H PRN PRN Reason: Moderate Pain SCALE 5-7 Stop: 03/25/25 19:25 Levothyroxine Sodium (Levothyroxine Sodium 88 Mcg Tablet) 88 mcg PO QDAC [facility] Last Admin: 03/22/25 09:11 Dose: 88 mcg Ondansetron HCl (Ondansetron Hcl/Pf 4 Mg/2 Ml Vial) 4 mg INJ Q6H PRN PRN Reason: Nausea And Vomiting Pantoprazole Sodium (Pantoprazole Sodium 40 Mg Vial) 40 mg IVP DAILY [facility] Last Admin: 03/22/25 09:11 Dose: 40 mg Time Spent With Patient Time: Total time spent is greater than 50% in coordination of care (as documented) at patient's floor/unit and/or counseling patient:
[2025-03-22] MEDS: ATORVASTATIN CALCIUM 10 MG TABLET PO SCH (20:03)
[2025-03-23 05:40] LABS: Basophils%(Percent) Auto 0.4 (0.0-1.3); Eosinophils#(Absolute)Auto 0.3 (0.0-0.3); Eosinophils%(Percent) Auto 3.4 % (0.0-4.0); Granulocytes % - Auto 64.8 % (49.1-73.1); Granulocytes#(Absolute)- Auto 5.6 (2.0-6.2); Hematocrit 45.6 % (41.3-50.1); Mean Corpuscular Volume 89.3 fl (81.9-96.5); Monocytes #(Absolute)- Auto 1.1 (0.2-0.8); Monocytes %(Percent)- Auto 12.4 % (4.5-10.7); Platelet Count 174 K/uL (142-355); White Blood Count 8.7 K/uL (3.7-9.6)
[2025-03-23 05:48] LABS: Potassium 3.5 mmol/L (3.6-5.2)
--- NOTE | 2025-03-23 13:11 | Progress Note ---
Progress Note: Subjective Subjective Interval history: Mr. Weinberg is still lethargic this morning but did work with physical therapy yesterday afternoon. Still difficulty with this R arm, R side neglect, and aphasia. Vitals have been stable since his hypotensive episode the day prior. Still awaiting bed assignment from [facility], patient accepted by Dr. Wayne; they continue to give q4-6hr updates on bed assignments. Exam Constitutional: normal general appearance, distress noted (moderate), average body habitus, limitations noted (altered mental status) and alert Vital Signs - 24 hr 03/22/25 15:57 03/22/25 19:29 03/22/25 23:38 Temperature 97.5 F L 97.0 F L 98.0 F Pulse Rate [Brachi al] 93 H 69 71 Respiratory Rate 18 20 16 Blood Pressure [Ri ght Arm] 136/76 152/81 135/68 Pulse Oximetry 95 95 97 Oxygen Delivery Me thod Room Air Room Air Room Air 03/23/25 03:26 03/23/25 07:47 03/23/25 12:00 Temperature 97.0 F L 98.3 F 97.4 F L Pulse Rate [Brachi al] 82 76 72 Respiratory Rate 17 19 19 Blood Pressure [Ri t Arm] 140/62 115/56 144/75 Pulse Oximetry 94 L 96 97 Oxygen Delivery Me thod Room Air Room Air Room Air HENMT: normocephalic, head/scalp atraumatic, hearing grossly normal bilaterally, external ears normal, external nose normal, oropharynx normal, dentition normal and gingiva normal Eyes: PERRL, EOMs intact bilaterally, conjunctivae normal, no scleral icterus, no papilledema, normal visual rachel by confrontation, alignment normal, periorbital findings normal and no nystagmus Neck/C-Spine: visual inspection normal, trachea midline, cervical spine nontender, cervical full ROM noted and supple Lymph: no lymphadenopathy noted and no lymphedema noted Chest: inspection of chest normal Respiratory: breath sounds equal bilaterally, normal respiratory effort, clear to auscultation bilaterally, no wheezes, no rales, no retractions and no use of accessory muscles Cardiovascular: normal heart rate noted, regular rhythm noted, no gallop, no murmur, no JVD, peripheral pulses 2+ throughout and no additional abnormal heart sounds Gastrointestinal: abdomen normal to inspection, abdomen soft to palpation, nontender to palpation, nondistended, normoactive bowel sounds, no masses, no pulsatile mass and no ascites Genitourinary: no CVA tenderness and bladder normal to palpation Back/Pelvis: spine normal to inspection Extremities: normal to inspection, normal to palpation, no tenderness, full ROM, no joint enlargement and no deformity Neurology: hand i blocker II-XII intact (impaired, patient has difficulty with commands to complete assessment), no movement abnormality noted (R neglect), no focal motor deficit noted, no sensory deficits noted (R side neglect), gait abnormality noted (unable to access), speech abnormality noted (expressive aphasia), (receptive aphasia) and (garbled), coordination normal, no fasciculations noted and GCS calculation - Eye opening: Spontaneous Verbal response: Words Motor response: Obey commands [place] Coma Scale total score: 13 difficulty with comands and fails nose to finger Psychiatry: Mental Status Exam documented within this Exam's Psych section mental status abnormal (somnolent), cooperative, affect abnormality noted (flat) and psychomotor activity normal Feel stressed/tense/nervous/anxious/difficulty sleeping: not at all Life stressor details: n/a Skin: skin color normal, no rash, no lesions, no ecchymosis noted, no wounds, no lacerations, skin turgor normal, no jaundice, no petechiae, no mottling, nails normal and no alopecia Progress Note: Objective Labs Labs: CBC 03/23/25 Range/Units 05:10 WBC 8.7 (3.7-9.6) K/uL RBC 5.1 (4.40-5.80) M/uL Hgb 15.6 (14.0-17.4) gm/dL Hct 45.6 (41.3-50.1) % Plt Count 174 (142-355) K/uL Gran % 64.8 (49.1-73.1) % Lymph % (Auto) 19.0 (17.6-39.05) % [place] % (Auto) 12.4 H (4.5-10.7) % Eos % (Auto) 3.4 (0.0-4.0) % Baso % (Auto) 0.4 (0.0-1.3) Lymph # (Auto) 1.6 (0.8-2.9) [place] # (Auto) 1.1 H (0.2-0.8) Eos # (Auto) 0.3 (0.0-0.3) Baso # (Auto) 0.0 (0.0-0.1) Absolute Gran (auto) 5.6 (2.0-6.2) CMP 03/23/25 05:10 Sodium 137 Potassium 3.5 L Chloride 101.0 Carbon Dioxide 27 BUN 24 H Creatinine 1.4 H Glucose 115 H Calcium 8.6 Urine 03/20/25 09:50 Urine Color Yellow Urine Appearance Hazy Ur Specific [place] 1.015 Urine Protein Negative Urine Glucose (UA) Normal Imaging Venous US: Radiologist's impression: CT scan - head: Radiologist's impression: Patient: Joseph Weinberg MR#: [id number] : 1945 Acct:[id number] Age/Sex: 79 / M ADM Date: 03/20/25 Loc: ED Attending Dr: Ordering Physician: Bao Neville NP Date of Service: 03/20/25 Procedure(s): CT head/brain wo con Accession Number(s): [id number] cc: Bao Neville [employer]; Sheila Quinones,~ EXAM: CT HEAD/BRAIN WO CON HISTORY: Altered mental status altered mental status; COMPARISON: Head CT 11/21/2024 TECHNIQUE: Multiple CT axial images of the brain were obtained without IV contrast. Coronal and sagittal images were reconstructed. Dose reduction techniques included Automated Exposure Control (AEC) and adjustment of mA and kV. FINDINGS: Age-related findings include central and cortical atrophy with areas of low density in the periventricular white matter compatible with micro-ischemic changes. This appearance is stable. 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 Lacunar infarct in the right basal ganglia is unchanged. Otherwise shah and white matter have normal differentiation. There is no mass, shift, or hemorrhage. Cerebellar tonsils are at an appropriate level. No fluid in the sinuses or mucosal thickening to suggest sinusitis. There is no mastoid effusion. IMPRESSION: 1. No acute finding THIS IS AN ELECTRONICALLY VERIFIED FINAL REPORT 03/20/2025 11:07 AM - Electronically signed by Himanshu Harrell MD Dictated By: Himanshu Harrell M.D. Signed By: MRI - head: Radiologist's impression: Patient: Joseph Weinberg MR#: [id number] : 1945 Acct:[id number] Age/Sex: 79 / M ADM Date: 03/20/25 Loc: [place] 1106-[address]: Zeke Gayle NP Ordering Physician: Bao Neville NP Date of Service: 03/21/25 Procedure(s): MR head/brain wo/w con Accession Number(s): [id number] cc: ~ EXAMINATION: MR HEAD/BRAIN WO/W CON HISTORY: AMS, dysphasia; trouble speaking; GFR:60.8 11 ml prohance. COMPARISON STUDY: CT brain 03/20/2025. MRI brain 04/21/2024 TECHNIQUE: Sagittal T1, axial T1, axial T2, axial proton density, axial diffusion weighted images and coronal FLAIR images were obtained through the brain. Pre and postcontrast MRI of the brain was performed. FINDINGS: Study is degraded by excessive motion artifact. There are foci of restricted diffusion in the left parietal region. Small focus of restricted diffusion in the left caudate nucleus, left centrum semiovale and left parietal high convexity. There are couple of small foci of restricted diffusion in the right centrum semiovale. This may represent embolic phenomenon. Old lacunar infarct in the left thalamus, right basal ganglia and right cerebellum.. Ventricles and sulci demonstrate atrophy and deep white matter ischemic changes.. Shah-white matter differentiation is maintained throughout. There are no intra-axial or extra-axial collections noted. There are normal flow voids within the middle cerebral arteries as well as the basilar artery. There is no hemorrhage midline shift or obstructive hydrocephalus noted. No abnormal enhancement or ring enhancing lesions noted. Excessive motion artifact limits evaluation.. Globes and retro-orbital structures are unremarkable. The sinuses are grossly clear. Cerebellopontine angles are normal. On the sagittal images cervicomedullary junction is normal. Normal bone marrow signal is seen within the clivus and cervical spine. Pituitary is unremarkable. Normal midline structures are present. There is no abnormal signal on the FLAIR and gradient echo images.. IMPRESSION: There are foci of restricted diffusion in the left caudate nucleus, left parietal region, left centrum semiovale, left parietal high convexity. In addition there are some foci of restricted diffusion in the right centrum semiovale. This may represent embolic process. No hemorrhage or midline shift. Atrophy and deep white matter ischemic changes. Old infarcts in the left thalamus, right basal ganglia and right cerebellum. THIS IS AN ELECTRONICALLY VERIFIED FINAL REPORT 03/21/2025 12:41 PM - Electronically signed by Neeraj Sewell MD Dictated By: Neeraj Sewell Signed By: 03/21/25 1241 DD/ 0700 TD/TT: 03/21/25 1231 Chest x-ray: Radiologist's impression: Patient: Joseph Weinberg MR#: [id number] : 1945 Acct:[id number] Age/Sex: 79 / M ADM Date: 03/20/25 Loc: ED Attending Dr: Ordering Physician: Bao Neville NP Date of Service: 03/20/25 Procedure(s): XR chest 1V Accession Number(s): [id number] cc: Bao Neville NP~ EXAM: CHEST HISTORY: UNABLE TO READ FIRST X-RAYUNABLE TO READ FIRST X-RAY; COMPARISON: March 20, 2025. TECHNIQUE: Frontal view of the chest was submitted for interpretation. FINDINGS: The cardiomediastinal silhouette is again seen to be enlarged. Lungs show pulmonary edema. IMPRESSION: Cardiomegaly with pulmonary edema. THIS IS AN ELECTRONICALLY VERIFIED FINAL REPORT 03/20/2025 7:27 PM - Electronically signed by Rashmi Alanis MD Dictated By: Rashmi Alanis M.D. Signed By: 03/20/25 1927 Patient: Joseph Weinberg MR#: [id number] : 1945 Acct:[id number] Age/Sex: 79 / M ADM Date: 03/20/25 Loc: ED Attending Dr: Ordering Physician: Bao Neville NP Date of Service: 03/20/25 Procedure(s): XR chest 1V Accession Number(s): [id number] cc: Bao Neville NP~ EXAM: CHEST HISTORY: dyspneadyspnea; COMPARISON: June 16, 2024. TECHNIQUE: Frontal view of the chest was submitted for interpretation. FINDINGS: The cardiomediastinal silhouette is again seen to be enlarged. Lungs show low volumes. IMPRESSION: Stable cardiomegaly. Low lung volumes. THIS IS AN ELECTRONICALLY VERIFIED FINAL REPORT 03/20/2025 7:27 PM - Electronically signed by Rashmi Alanis MD Dictated By: Rashmi Alanis M.D. Signed By: 03/20/251926 Ultrasound: Radiologist's impression: [facility] [address] [place] [address] Ultrasound Report SignedPatient: Joseph Weinberg MR#: [id number] : 1945 Acct:[id number] Age/Sex: 79 / M ADM Date: 03/20/25 Loc: [place] 1106-[address]: Zeke Gayle NP Ordering Physician: Bao Neville NP Date of Service: 03/21/25 Procedure(s): US carotid doppler BI Accession Number(s): [id number] cc: Bao Neville NP~ EXAM: US CAROTID DOPPLER BI HISTORY: assessing for occlusion to brainassessing for occlusion to brain; COMPARISON: Neck CT angiogram April 21, 2024 TECHNIQUE: Multiple shah scale and color flow Doppler images of the right and left carotid arterial system were obtained. The vertebral arterial system was evaluated as well. FINDINGS: Maximum right proximal internal carotid artery velocity 145 cm/second with ratio to common carotid 59 cm/second is 2.27. Left maximum proximal internal carotid velocity 66 cm/second with ratio to common carotid 91 cm/second is 0.63. The right vertebral artery is occluded, unchanged. Left vertebral artery is antegrade flow. IMPRESSION: 70% right proximal internal carotid artery stenosis. Less than 50% left proximal internal carotid artery stenosis. Occluded right vertebral artery. THIS IS AN ELECTRONICALLY VERIFIED FINAL REPORT 03/21/2025 3:53 PM - Electronically signed by Bryon Padilla MD Dictated By: Bryon Padilla M.D. Signed By: Progress Note: A&P Assessment and Plan (1) Acute CVA (cerebrovascular accident): Assessment and Plan: MRI/MRI Carotid US Plavix 75mg po daily ASA 81mg po daily Lipitor 40mg po daily (2) Weakness of right side of body: Assessment and Plan: MRI/MRI Carotid US Plavix 75mg po daily ASA 81mg po daily Lipitor 40mg po daily (3) Pulmonary edema: Assessment and Plan: D/C Lasix 40mg IV daily (4) Hypothyroidism: Assessment and Plan: Synthroid 88mcg po daily Qualifiers: Hypothyroidism type: other Qualified Code(s): E03.8 - Other specified hypothyroidism (5) Diabetes: Assessment and Plan: Accucheck ACHS w/ SSI Qualifiers: Diabetes mellitus type: type 2 Diabetes mellitus group home insulin use: without group home use Diabetes mellitus complication status: with circulatory complication Diabetes mellitus complication detail: with other circulatory complications Qualified Code(s): E11.59 - Type 2 diabetes mellitus with other circulatory complications (6) Hypertension: Assessment and Plan: D/C Norvac 10mgpo daily Qualifiers: Hypertension type: primary hypertension Qualified Code(s): I10 - Essential (primary) hypertension Plan Admit VS q4hrs PT/OT/ST eval Transfer for neurovascular evaluation Hold antihypertensives Fall Risk Details Boo Fall Scale Risk Level: High Fall Risk Current Medications: Current Medications Aspirin (Aspirin 81 Mg Tablet.Dr) 81 mg PO DAILY [facility] Last Admin: 03/23/25 12:57 Dose: Not Given Atorvastatin Calcium (Atorvastatin Calcium 10 Mg Tablet) 40 mg PO BEDTIME [facility] Last Admin: 03/22/25 21:00 Dose: Not Given Clopidogrel Bisulfate (Clopidogrel Bisulfate 75 Mg Tablet) 75 mg PO DAILY [facility] Last Admin: 03/23/25 12:57 Dose: Not Given Docusate Sodium (Docusate Sodium 100 Mg Capsule) 100 mg PO DAILY PRN PRN Reason: Constipation Promethazine HCl 25 mg/ Sodium (Chloride) 51 mls @ 200 mls/hr IV Q8H PRN PRN Reason: Nausea And Vomiting Acetaminophen (Acetaminophen 1000 Mg/100 Ml) 1,000 mg in 100 mls @ 400 mls/hr IV Q6H PRN PRN Reason: Pain Insulin Human Regular (Insulin Regular, Human 100 Unit/Ml) 0 unit SUBQ ACHS PRN; Protocol PRN Reason: Blood Sugar - High Insulin Human Regular (Insulin Regular, Human 100 Unit/Ml) 0 unit SUBQ ACHS PRN; Protocol PRN Reason: diabetes Ketorolac Tromethamine (Ketorolac 30 Mg/Ml Inj Vial) 15 mg IVP Q6H PRN PRN Reason: Moderate Pain SCALE 5-7 Stop: 03/25/25 19:25 Levothyroxine Sodium (Levothyroxine Sodium 88 Mcg Tablet) 88 mcg PO QDAC [facility] Last Admin: 03/23/25 12:57 Dose: Not Given Ondansetron HCl (Ondansetron Hcl/Pf 4 Mg/2 Ml Vial) 4 mg INJ Q6H PRN PRN Reason: Nausea And Vomiting Pantoprazole Sodium (Pantoprazole Sodium 40 Mg Vial) 40 mg IVP DAILY [facility] Last Admin: 03/23/25 12:57 Dose: Not Given Time Spent With Patient Time: Total time spent is greater than 50% in coordination of care (as documented) at patient's floor/unit and/or counseling patient:
[2025-03-24] MEDS: HALOPERIDOL LACTATE 5 MG/ML VIAL IVP ONE (02:31)
[2025-03-24] MEDS: KETOROLAC 30 MG/ML INJ VIAL IVP PRN (03:46)
--- NOTE | 2025-03-24 06:33 | Progress Note ---
Progress Note: Subjective Subjective Interval history: Mr. Weinberg is still lethargic this morning but did work with physical therapy yesterday afternoon. Still difficulty with this R arm, R side neglect, and aphasia. Vitals have been stable since his hypotensive episode the day prior. Still awaiting bed assignment from [facility], patient accepted by Dr. Wayne; they continue to give q4-6hr updates on bed assignments. per RN patient has been combative after midnight at 0230 she gave Haldol 2.5mg IV and at 0500 patient was up in the chair, head went sideways, patient incontinent of urine and she had a hard time getting BP on him O2 sats were 98%RA then at 0510 per RN patient was back at his baseline Exam Constitutional: no apparent distress Vital Signs - 24 hr 03/23/25 07:47 03/23/25 12:00 03/23/25 15:45 Temperature 98.3 F 97.4 F L 98.4 F Pulse Rate [Brachi al] 76 72 74 Respiratory Rate 19 19 19 Blood Pressure [Ri ght Arm] 115/56 144/75 144/79 Pulse Oximetry 96 97 97 Oxygen Delivery Me thod Room Air Room Air Room Air 03/23/25 16:00 03/23/25 20:00 03/24/25 00:00 Temperature 98.4 F 97.9 F 97.5 F L Pulse Rate [Brachi al] 74 74 80 Respiratory Rate 19 19 18 Blood Pressure [Ri ght Arm] 144/79 129/60 151/63 Pulse Oximetry 97 97 96 Oxygen Delivery [place] thod Room Air Room Air Room Air HENMT: normocephalic and head/scalp atraumatic Eyes: PERRL and EOMs intact bilaterally Neck/C-Spine: visual inspection normal Chest: inspection of chest normal Respiratory: breath sounds equal bilaterally, normal respiratory effort, clear to auscultation bilaterally, no wheezes, no rales, no retractions, no use of accessory muscles and chest percussion normal Cardiovascular: normal heart rate noted, regular rhythm noted, no gallop, no rub, no murmur, no JVD and no clicks Gastrointestinal: abdomen normal to inspection, abdomen soft to palpation, nondistended, normoactive bowel sounds, no hepatosplenomegaly, no masses, no pulsatile mass, no ascites and no hernia Back/Pelvis: spine normal to inspection Extremities: normal to inspection Neurology: patient is alert and mumbles (per RN that is patients baseline) Psychiatry: patient is alert and mumbles (per RN that is patients baseline) Skin: skin color abnormal Reports (pale) Progress Note: Objective Labs Labs: Urine 03/20/25 09:50 Urine Color Yellow Urine Appearance Hazy Ur Specific [place] 1.015 Urine Protein Negative Urine Glucose (UA) Normal Progress Note: A&P Assessment and Plan (1) Acute CVA (cerebrovascular accident): Assessment and Plan: MRI/MRI Carotid US Plavix 75mg po daily ASA 81mg po daily Lipitor 40mg po daily (2) Weakness of right side of body: Assessment and Plan: MRI/MRI Carotid US Plavix 75mg po daily ASA 81mg po daily Lipitor 40mg po daily (3) Pulmonary edema: Assessment and Plan: D/C Lasix 40mg IV daily (4) Hypothyroidism: Assessment and Plan: Synthroid 88mcg po daily Qualifiers: Hypothyroidism type: other Qualified Code(s): E03.8 - Other specified hypothyroidism (5) Diabetes: Assessment and Plan: Accucheck ACHS w/ SSI Qualifiers: Diabetes mellitus type: type 2 Diabetes mellitus mcc insulin use: without mcc use Diabetes mellitus complication status: with circulatory complication Diabetes mellitus complication detail: with other circulatory complications Qualified Code(s): E11.59 - Type 2 diabetes mellitus with other circulatory complications (6) Hypertension: Assessment and Plan: D/C Norvac 10mgpo daily Qualifiers: Hypertension type: primary hypertension Qualified Code(s): I10 - Essential (primary) hypertension (7) AMS (altered mental status): Onset Date: ~03/24/25 Assessment and Plan: AMS: Plan Admit VS q4hrs PT/OT/ST eval Transfer for neurovascular evaluation Hold antihypertensives CT brain ordered EKG per RN patient was back to baseline 10minutes after the episode will order labs if AM labs were not ordered Fall Risk Details Boo Fall Scale Risk Level: Moderate Fall Risk Current Medications: Current Medications Aspirin (Aspirin 81 Mg Tablet.) 81 mg PO DAILY [facility] Last Admin: 03/23/25 12:57 Dose: Not Given Atorvastatin Calcium (Atorvastatin Calcium 10 Mg Tablet) 40 mg PO BEDTIME [facility] Last Admin: 03/23/25 21:04 Dose: 40 mg Clopidogrel Bisulfate (Clopidogrel Bisulfate 75 Mg Tablet) 75 mg PO DAILY [facility] Last Admin: 03/23/25 21:04 Dose: 75 mg Docusate Sodium (Docusate Sodium 100 Mg Capsule) 100 mg PO DAILY PRN PRN Reason: Constipation Promethazine HCl 25 mg/ Sodium (Chloride) 51 mls @ 200 mls/hr IV Q8H PRN PRN Reason: Nausea And Vomiting Acetaminophen (Acetaminophen 1000 Mg/100 Ml) 1,000 mg in 100 mls @ 400 mls/hr IV Q6H PRN PRN Reason: Pain Insulin Human Regular (Insulin Regular, Human 100 Unit/Ml) 0 unit SUBQ ACHS PRN; Protocol PRN Reason: Blood Sugar - High Insulin Human Regular (Insulin Regular, Human 100 Unit/Ml) 0 unit SUBQ ACHS PRN; Protocol PRN Reason: diabetes Ketorolac Tromethamine (Ketorolac 30 Mg/Ml Inj Vial) 15 mg IVP Q6H PRN PRN Reason: Moderate Pain SCALE 5-7 Stop: 03/25/25 19:25 Last Admin: 03/24/25 03:46 Dose: 15 mg Levothyroxine Sodium (Levothyroxine Sodium 88 Mcg Tablet) 88 mcg PO QDAC [facility] Last Admin: 03/23/25 12:57 Dose: Not Given Ondansetron HCl (Ondansetron Hcl/Pf 4 Mg/2 Ml Vial) 4 mg INJ Q6H PRN PRN Reason: Nausea And Vomiting Pantoprazole Sodium (Pantoprazole Sodium 40 Mg Vial) 40 mg IVP DAILY [facility] Last Admin: 03/23/25 12:57 Dose: Not Given Time Spent With Patient Time: Total time spent is greater than 50% in coordination of care (as documented) at patient's floor/unit and/or counseling patient:
[2025-03-24 07:09] LABS: Basophils #(Absolute) Auto 0.1 (0.0-0.1); Basophils%(Percent) Auto 0.4 (0.0-1.3); Eosinophils#(Absolute)Auto 0.1 (0.0-0.3); Eosinophils%(Percent) Auto 0.4 % (0.0-4.0); Granulocytes % - Auto 83.2 % (49.1-73.1); Granulocytes#(Absolute)- Auto 11.6 (2.0-6.2); Hematocrit 46.1 % (41.3-50.1); Mean Corpuscular Volume 89.3 fl (81.9-96.5); Monocytes #(Absolute)- Auto 1.2 (0.2-0.8); Monocytes %(Percent)- Auto 8.9 % (4.5-10.7); Platelet Count 181 K/uL (142-355)
[2025-03-24 07:18] LABS: Potassium 4.1 mmol/L (3.6-5.2)
[2025-03-24] MEDS: 0.9 % SODIUM CHLORIDE 1000 ML 1,000 ML IV ONE (07:37)
[2025-03-24 09:20] VITALS: BP 131/75; PULSE 73; RESP 19; TEMP 97.6
--- NOTE | 2025-03-24 09:59 | Progress Note ---
Progress Note: Subjective Subjective Interval history: Mr. Weinberg is once again lethargic this morning. Patient did get combative last night, received haldol. He later experienced hypotensive episode and was seen by ED provider. CXR shows LL PNA, CT SAWYER showed nonhemorrhagic infarct L parietal region. Exam Constitutional: no apparent distress Vital Signs - 24 hr 03/23/25 12:00 03/23/25 15:45 03/23/25 16:00 Temperature 97.4 F L 98.4 F 98.4 F Pulse Rate [Brachi al] 72 74 74 Respiratory Rate 19 19 19 Blood Pressure [Ri ght Arm] 144/75 144/79 144/79 Pulse Oximetry 97 97 97 Oxygen Delivery Me thod Room Air Room Air Room Air 03/23/25 20:00 03/24/25 00:00 03/24/25 08:00 Temperature 97.9 F 97.5 F L 97.6 F Pulse Rate [Brachi al] 74 80 73 Respiratory Rate 19 18 19 Blood Pressure [Ri ght Arm] 129/60 151/63 131/75 Pulse Oximetry 97 96 99 Oxygen Delivery Me thod Room Air Room Air Room Air HENMT: normocephalic and head/scalp atraumatic Eyes: PERRL and EOMs intact bilaterally Neck/C-Spine: visual inspection normal Lymph: no lymphadenopathy noted and no lymphedema noted Chest: inspection of chest normal Respiratory: breath sounds equal bilaterally, normal respiratory effort, clear to auscultation bilaterally, no wheezes, no rales, no retractions, no use of accessory muscles and chest percussion normal Cardiovascular: normal heart rate noted, regular rhythm noted, no gallop, no rub, no murmur, no JVD and no clicks Gastrointestinal: abdomen normal to inspection, abdomen soft to palpation, nondistended, normoactive bowel sounds, no hepatosplenomegaly, no masses, no pulsatile mass, no ascites and no hernia Genitourinary: no CVA tenderness and bladder normal to palpation Back/Pelvis: spine normal to inspection Extremities: normal to inspection Neurology: resident care spec II-XII intact (impaired, patient has difficulty with commands to complete assessment), no movement abnormality noted (R neglect), no focal motor deficit noted, no sensory deficits noted (R side neglect), gait abnormality noted (unable to access), speech abnormality noted (expressive aphasia), (receptive aphasia) and (garbled), coordination normal, no fasciculations noted and GCS calculation - Eye opening: Spontaneous Verbal r esponse: Words Motor response: Obey commands [place] Coma Scale total score: 13 patient is lethargic and continues to mumble Psychiatry: Mental Status Exam documented within this Exam's Psych section mental status grossly normal, cooperative, affect abnormality noted (flat) and psychomotor activity normal * patient lethargic, did receive haldol during the night Feel stressed/tense/nervous/anxious/difficulty sleeping: not at all Life stressor details: n/a Skin: skin color abnormal Reports (pale) Progress Note: Objective Labs Labs: CBC 03/24/25 Range/Units 07:05 WBC 14.0 H (3.7-9.6) K/uL RBC 5.2 (4.40-5.80) M/uL Hgb 15.5 (14.0-17.4) gm/dL Hct 46.1 (41.3-50.1) % Plt Count 181 (142-355) K/uL Gran % 83.2 H (49.1-73.1) % Lymph % (Auto) 7.1 L (17.6-39.05) % [place] % (Auto) 8.9 (4.5-10.7) % Eos % (Auto) 0.4 (0.0-4.0) % Baso % (Auto) 0.4 (0.0-1.3) Lymph # (Auto) 1.0 (0.8-2.9) [place] # (Auto) 1.2 H (0.2-0.8) Eos # (Auto) 0.1 (0.0-0.3) Baso # (Auto) 0.1 (0.0-0.1) Absolute Gran (auto) 11.6 H (2.0-6.2) CMP 03/24/25 07:05 Sodium 137 Potassium 4.1 Chloride 102.0 Carbon Dioxide 27 BUN 28 H Creatinine 1.8 H Glucose 146 H Calcium 9.1 Liver Function 03/24/25 Range/Units 07:05 Total Bilirubin 1.11 H (0.0-1.0) mg/dL AST 22 (15-37) U/L ALT 21 L (30-65) U/L Alkaline Phosphatase 64 (50-136) U/L Albumin 3.6 (3.4-5.0) g/dL Urine 03/20/25 09:50 Urine Color Yellow Urine Appearance Hazy Ur Specific [place] 1.015 Urine Protein Negative Urine Glucose (UA) Normal Imaging CT scan - head: Radiologist's impression: Signed Patient: Joseph Weinberg MR#: [id number] : 1945 Acct:[id number] Age/Sex: 79 / M ADM Date: 03/20/25 Loc: ED Attending Dr: Ordering Physician: Bao Neville NP Date of Service: 03/20/25 Procedure(s): CT head/brain wo con Accession Number(s): [id number] cc: Bao Neville NP; Sheila Quinones DO~ EXAM: CT HEAD/BRAIN WO CON HISTORY: Altered mental status altered mental status; COMPARISON: Head CT 11/21/2024 TECHNIQUE: Multiple CT axial images of the brain were obtained without IV contrast. Coronal and sagittal images were reconstructed. Dose reduction techniques included Automated Exposure Control (AEC) and adjustment of mA and kV. FINDINGS: Age-related findings include central and cortical atrophy with areas of low density in the periventricular white matter compatible with micro-ischemic changes. This appearance is stable. 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 Lacunar infarct in the right basal ganglia is unchanged. Otherwise shah and white matter have normal differentiation. There is no mass, shift, or hemorrhage. Cerebellar tonsils are at an appropriate level. No fluid in the sinuses or mucosal thickening to suggest sinusitis. There is no mastoid effusion. IMPRESSION: 1. No acute finding THIS IS AN ELECTRONICALLY VERIFIED FINAL REPORT 03/20/2025 11:07 AM - Electronically signed by Himanshu Harrell MD Dictated By: Himanshu Harrell M.D. Signed By: Patient: Joseph Weinberg MR#: [id number] : 1945 Acct:[id number] Age/Sex: 79 / M ADM Date: 03/20/25 Loc: [place] 1106-[address]: Zeke Gayle NP Ordering Physician: Bao Neville NP Date of Service: 03/21/25 Procedure(s): MR head/brain wo/w con Accession Number(s): [id number] cc: ~ EXAMINATION: MR HEAD/BRAIN WO/W CON HISTORY: AMS, dysphasia; trouble speaking; GFR:60.8 11 ml prohance. COMPARISON STUDY: CT brain 03/20/2025. MRI brain 04/21/2024 TECHNIQUE: Sagittal T1, axial T1, axial T2, axial proton density, axial diffusion weighted images and coronal FLAIR images were obtained through the brain. Pre and postcontrast MRI of the brain was performed. FINDINGS: Study is degraded by excessive motion artifact. There are foci of restricted diffusion in the left parietal region. Small focus of restricted diffusion in the left caudate nucleus, left centrum semiovale and left parietal high convexity. There are couple of small foci of restricted diffusion in the right centrum semiovale. This may represent embolic phenomenon. Old lacunar infarct in the left thalamus, right basal ganglia and right cerebellum.. Ventricles and sulci demonstrate atrophy and deep white matter ischemic changes.. Shah-white matter differentiation is maintained throughout. There are no intra-axial or extra-axial collections noted. There are normal flow voids within the middle cerebral arteries as well as the basilar artery. There is no hemorrhage midline shift or obstructive hydrocephalus noted. No abnormal enhancement or ring enhancing lesions noted. Excessive motion artifact limits evaluation.. Globes and retro-orbital structures are unremarkable. The sinuses are grossly clear. Cerebellopontine angles are normal. On the sagittal images cervicomedullary junction is normal. Normal bone marrow signal is seen within the clivus and cervical spine. Pituitary is unremarkable. Normal midline structures are present. There is no abnormal signal on the FLAIR and gradient echo images.. IMPRESSION: There are foci of restricted diffusion in the left caudate nucleus, left parietal region, left centrum semiovale, left parietal high convexity. In ad dition there are some foci of restricted diffusion in the right centrum semiovale. This may represent embolic process. No hemorrhage or midline shift. Atrophy and deep white matter ischemic changes. Old infarcts in the left thalamus, right basal ganglia and right cerebellum. THIS IS AN ELECTRONICALLY VERIFIED FINAL REPORT 03/21/2025 12:41 PM - Electronically signed by Neeraj Sewell MD Dictated By: Neeraj Sewell Signed By: [place] [id number] CT Scan Report Signed Patient: Joseph Weinberg MR#: [id number] : 1945 Acct:[id number] Age/Sex: 79 / M ADM Date: 03/20/25 Loc: [place] 1106-[address]: Zeke Gayle NP Ordering Physician: Day Juan Date of Service: 03/24/25 Procedure(s): CT head/brain wo con Accession Number(s): [id number] cc: Zeke Gayle NP; Day Juan; Sheilaviry EscobarJoni,DO~ EXAMINATION: CT HEAD/BRAIN WO CON HISTORY: AMS; CV. COMPARISON STUDY: CT brain 03/20/2025. MRI brain 03/21/2025 TECHNIQUE: Images were obtained in brain and bone windows. The above CT scan was done with automated exposure control and the mA and kV was adjusted to obtain quality images according to patient size. FINDINGS: There is motion artifact. Subacute left MCA infarct appears more defined compared to the prior study. No hemorrhage or midline shift. Old lacunar infarct in the left thalamus, right basal ganglia right cerebellum. No new areas of shah-white matter differentiation loss, hemorrhage or midline shift. No obstructive hydrocephalus. There is atrophy and deep white matter ischemic change due to small vessel disease. Shah-white matter differentiation is maint ained throughout. There are no intra-axial or extra-axial collections noted. . The sinuses are clear. The mastoid air cells are clear. There is no radiographic evidence of depressed skull fracture. Vascular calcification about the skull base.. IMPRESSION: Subacute nonhemorrhagic infarct in the left parietal region is more defined on the current study. No hemorrhage or midline shift. Atrophy and deep white matter ischemic changes. Old infarcts within the left thalamus right basal ganglia and right cerebellum. No new areas of shah-white matter differentiation loss. THIS IS AN ELECTRONICALLY VERIFIED FINAL REPORT 03/24/2025 8:39 AM - Electronically signed by Neeraj Sewell MD Dictated By: Neeraj Sewell Signed By: Chest x-ray: Radiologist's impression: Patient: Joseph Weinberg MR#: [id number] : 1945 Acct:[id number] Age/Sex: 79 / M ADM Date: 03/20/25 Loc: ED Attending Dr: Ordering Physician: Bao Neville NP Date of Service: 03/20/25 Procedure(s): XR chest 1V Accession Number(s): [id number] cc: Bao Neville NP~ EXAM: CHEST HISTORY: UNABLE TO READ FIRST X-RAYUNABLE TO READ FIRST X-RAY; COMPARISON: March 20, 2025. TECHNIQUE: Frontal view of the chest was submitted for interpretation. FINDINGS: The cardiomediastinal silhouette is again seen to be enlarged. Lungs show pulmonary edema. IMPRESSION: Cardiomegaly with pulmonary edema. THIS IS AN ELECTRONICALLY VERIFIED FINAL REPORT 03/20/2025 7:27 PM - Electronically signed by Rashmi Alanis MD Dictated By: Rashmi Alanis M.D. Signed By: 03/20/25 1927 DD/ 1303 TD/TT: 03/20/25 1424 [employer] First: J[facility] [employer] [address] [place] [address] XRay Report Signed Patient: Joseph Weinberg MR#: [id number] : 1945 Acct:[id number] Age/Sex: 79 / M ADM Date: 03/20/25 Loc: [place] 1106-[address]: Zeke Gayle NP Ordering Physician: Day Juan Date of Service: 03/24/25 Procedure(s): XR chest 1V Accession Number(s): [id number] cc: Zeke Gayle NP; Day Juan~ EXAM: XR CHEST 1V HISTORY: AMS; MB COMPARISON: March 20, 2025 FINDINGS: The trachea is midline. The cardiac silhouette is mildly enlarged. A moderate area of infiltrate is at left lower lobe. The rest of lungs are clear without focal infiltrate or effusion. The bony thorax is unremarkable. IMPRESSION: Left lower lung pneumonia. THIS IS AN ELECTRONICALLY VERIFIED FINAL REPORT 03/24/2025 8:42 AM - Electronically signed by Bryon Padilla MD Dictated By: Bryon Padilla M.D. Signed By: Carotid: Radiologist's impression: Patient: Joseph Weinberg MR#: [id number] : 1945 Acct:[id number] Age/Sex: 79 / M ADM Date: 03/20/25 Loc: [place] 1106-[address]: Zeke Gayle NP Ordering Physician: Neville,Bao [employer] PROJECT MANAGER Date of Service: 03/21/25 Procedure(s): US carotid doppler BI Accession Number(s): [id number] cc: Bao Neville [employer] PROJECT MANAGER~ EXAM: US CAROTID DOPPLER BI HISTORY: assessing for occlusion to brainassessing for occlusion to brain; COMPARISON: Neck CT angiogram April 21, 2024 TECHNIQUE: Multiple shah scale and color flow Doppler images of the right and left carotid arterial system were obtained. The vertebral arterial system was evaluated as well. FINDINGS: Maximum right proximal internal carotid artery velocity 145 cm/second with ratio to common carotid 59 cm/second is 2.27. Left maximum proximal internal carotid velocity 66 cm/second with ratio to common carotid 91 cm/second is 0.63. The right vertebral artery is occluded, unchanged. Left vertebral artery is antegrade flow. IMPRESSION: 70% right proximal internal carotid artery stenosis. Less than 50% left proximal internal carotid artery stenosis. Occluded right vertebral artery. THIS IS AN ELECTRONICALLY VERIFIED FINAL REPORT 03/21/2025 3:53 PM - Electronically signed by Bryon Padilla MD Dictated By: Bryon Padilla M.D. Signed By: Progress Note: A&P Assessment and Plan (1) Acute CVA (cerebrovascular accident): Assessment and Plan: MRI/MRI Carotid US Plavix 75mg po daily ASA 81mg po daily Lipitor 40mg po daily (2) Weakness of right side of body: Assessment and Plan: MRI Carotid US Plavix 75mg po daily ASA 81mg po daily Lipitor 40mg po daily (3) Pulmonary edema: Assessment and Plan: D/C Lasix 40mg IV daily (4) Hypothyroidism: Assessment and Plan: Synthroid 88mcg po daily Qualifiers: Hypothyroidism type: other Qualified Code(s): E03.8 - Other specified hypothyroidism (5) Diabetes: Assessment and Plan: Accucheck ACHS w/ SSI Qualifiers: Diabetes mellitus type: type 2 Diabetes mellitus meterman insulin use: without meterman use Diabetes mellitus complication status: with circulatory complication Diabetes mellitus complication detail: with other circulatory com plications Qualified Code(s): E11.59 - Type 2 diabetes mellitus with other circulatory complications (6) Hypertension: Assessment and Plan: D/C Norvac 10mgpo daily Qualifiers: Hypertension type: primary hypertension Qualified Code(s): I10 - Essential (primary) hypertension (7) AMS (altered mental status): Onset Date: ~03/24/25 Assessment and Plan: AMS: Neuro q4hrs Plan Admit VS q4hrs PT/OT/ST eval Transfer for neurovascular evaluation Hold antihypertensives CT brain- L parietal infarct EKG per RN patient was back to baseline 10minutes after the episode will order labs if AM labs were not ordered Fall Risk Details Boo Fall Scale Risk Level: Moderate Fall Risk Current Medications: Current Medications Aspirin (Aspirin 81 Mg Tablet.) 81 mg PO DAILY [facility] Last Admin: 03/24/25 09:54 Dose: Not Given Atorvastatin Calcium (Atorvastatin Calcium 10 Mg Tablet) 40 mg PO BEDTIME [facility] Last Admin: 03/23/25 21:04 Dose: 40 mg Clopidogrel Bisulfate (Clopidogrel Bisulfate 75 Mg Tablet) 75 mg PO DAILY [facility] Last Admin: 03/24/25 09:54 Dose: Not Given Docusate Sodium (Docusate Sodium 100 Mg Capsule) 100 mg PO DAILY PRN PRN Reason: Constipation Promethazine HCl 25 mg/ Sodium (Chloride) 51 mls @ 200 mls/hr IV Q8H PRN PRN Reason: Nausea And Vomiting Acetaminophen (Acetaminophen 1000 Mg/100 Ml) 1,000 mg in 100 mls @ 400 mls/hr IV Q6H PRN PRN Reason: Pain Piperacillin Sod/Tazobactam (Sod 3.375 gm/ Sodium Chloride) 100 mls @ 200 mls/hr IV Q6H [facility] Insulin Human Regular (Insulin Regular, Human 100 Unit/Ml) 0 unit SUBQ ACHS PRN; Protocol PRN Reason: Blood Sugar - High Insulin Human Regular (Insulin Regular, Human 100 Unit/Ml) 0 unit SUBQ ACHS PRN; Protocol PRN Reason: diabetes Ketorolac Tromethamine (Ketorolac 30 Mg/Ml Inj Vial) 15 mg IVP Q6H PRN PRN Reason: Moderate Pain SCALE 5-7 Stop: 03/25/25 19:25 Last Admin: 03/24/25 03:46 Dose: 15 mg Levothyroxine Sodium (Levothyroxine Sodium 88 Mcg Tablet) 88 mcg PO QDAC [facility] Last Admin: 03/24/25 08:28 Dose: Not Given Ondansetron HCl (Ondansetron Hcl/Pf 4 Mg/2 Ml Vial) 4 mg INJ Q6H PRN PRN Reason: Nausea And Vomiting Pantoprazole Sodium (Pantoprazole Sodium 40 Mg Vial) 40 mg IVP DAILY [facility] Last Admin: 03/24/25 09:54 Dose: Not Given Time Spent With Patient Time: Total time spent is greater than 50% in coordination of care (as documented) at patient's floor/unit and/or counseling patient:
[2025-03-24] MEDS: PIPERACILLIN/TAZOBACTAM 3.375 3.375 GM in 0.9 % SODIUM CHLORIDE MB+ 100 ML IV SCH (11:53)
== END 2025-03-24 12:52 | disposition short-term general hospital (02) | DRG 65 ==
LOC: MS 09:45 → ED 09:45 → OBSVTOIN 19:17 → MS 22:50
PROVIDERS: ADMIT Nurse Practitioner Family; ATTEND Nurse Practitioner
DX: Z79.899 Other long term (current) drug therapy; E11.59 Type 2 diabetes mellitus with other circulatory complications; J81.1 Chronic pulmonary edema; Z79.02 Long term (current) use of antithrombotics/antiplatelets; I63.9 Cerebral infarction, unspecified; R47.01 Aphasia; R41.82 Altered mental status, unspecified; G81.91 Hemiplegia, unspecified affecting right dominant side; I95.9 Hypotension, unspecified; E03.8 Other specified hypothyroidism; Z79.4 Long term (current) use of insulin; I10 Essential (primary) hypertension; Z79.82 Long term (current) use of aspirin